=== PATIENT | female | born 1955 | race Caucasian/White ===

== ENCOUNTER → 2019-02-20 | Outpatient (CLI) | payer MEDICARE, BC ==
[~2019-02-20] MED LIST: Advil200 M1; Synthroid125 MCG
== END | disposition home or self-care (01) ==
LOC: PLD 15:18 → LAB SHORT 15:18
DX: L90.5 Scar conditions and fibrosis of skin (principal)
CPT/HCPCS: 88305

== ENCOUNTER 2021-04-05 20:02 | Emergency (ER) | payer MEDICARE, BC, OTHER ==
[~2021-04-05] VITALS: Ht 172.7 cm; Wt 81.7 kg
== END 2021-04-05 22:00 | disposition left against medical advice (07) ==
LOC: ER 20:02
DX: Z53.21 Procedure and treatment not carried out due to patient leaving prior to being seen by health care provider (principal)
CPT/HCPCS: 71045; 99283-25

== ENCOUNTER 2024-08-17 17:47 | Inpatient (IN) | payer MEDICARE, BC ==
[~2024-08-17] VITALS: Ht 170.2 cm; Wt 79.3 kg
[2024-08-17 18:24] LABS: BASOPHILS ABSOLUTE AUTO 0.06 K/mm3 (0.00-0.23); BASOPHILS PERCENT AUTO 1 % (0-2); EOSINOPHILS ABSOLUTE AUTO 0.16 K/mm3 (0.00-0.68); EOSINOPHILS PERCENT AUTO 2 % (0-6); Hematocrit 41.9 % (33.0-51.0); Hemoglobin 14.3 g/dL (11.5-16.0); IMMATURE GRAN ABSOLUTE AUTO 0.02 K/mm3 (0.00-0.10); IMMATURE GRAN PERCENT AUTO 0 % (0-1); LYMPHOCYTES ABSOLUTE AUTO 2.78 K/mm3 (0.84-5.20); LYMPHOCYTES PERCENT AUTO 25 % (21-46); MONOCYTES PERCENT AUTO 6 % (4-13); Mean Corpuscular HGB 28.9 pg (26.0-34.0); Mean Corpuscular HGB Conc 34.1 g/dL (31.5-36.5); Mean Corpuscular Volume 85 fL (80-100); Mean Platelet Volume 9.9 fL (9.1-12.4); NEUTROPHILS ABSOLUTE AUTO 7.28 K/mm3 (1.96-9.15); NEUTROPHILS PERCENT AUTO 66 % (41-73); Platelet Count 278 K/mm3 (150-400); RDW Coefficient Variation 13.9 % (11.7-14.2); RDW Standard Deviation 43.1 fL (35.1-46.3); Red Blood Cell Count 4.94 M/mm3 (3.80-5.20)
[2024-08-17 19:04] LABS: Albumin/Globulin Ratio 0.9 (0.8-1.8); Bun/Creatinine Ratio 19.1 (12.0-20.0); Calcium, Blood 10.2 mg/dL (8.5-10.1); Creatinine, Blood 0.79 mg/dL (0.40-1.00); Globulin, Blood 4.3 g/dL (2.2-4.0); Potassium, Blood 3.7 mmol/L (3.5-5.5); Total Protein, Blood 8.3 g/dL (6.4-8.2)
[2024-08-17] MEDS ORDERED: Aspirin 325 MG Tab PO ONE (20:20)
[2024-08-17] MEDS ORDERED: Nitroglycerin 0.4 MG SUBL SL PRN ×2 (20:20→23:25)
[2024-08-17] MEDS ORDERED: SYNTHROID125 MC1 PO (21:34)
[2024-08-17] MEDS ORDERED: Mag Hydrox/AL Hydrox/Simeth 30 ML UDC PO ONE (21:35)
[2024-08-17] MEDS ORDERED: Atorvastatin 10 MG Tab PO ONE (21:35)
[2024-08-17 22:12] LABS: Anti-Xa UFH, PHA Monitoring <0.10 IU/mL; International Normalized Ratio 1.04; Prothrombin Time Results 11.1 Sec (9.7-11.5)
[2024-08-17] MEDS ORDERED: Heparin Sodium,Porcine/0.5 NS 500 ML IV SCH (22:35)
[2024-08-17] MEDS ORDERED: Ondansetron HCl 2 MG / ML 2ML Vial IV PRN (23:25)
[2024-08-17] MEDS ORDERED: FLU VACC TS2024-25(6MOS UP)/PF 45 MCG/0.5 ML SYRINGE IM ONE (23:25)
[2024-08-17] MEDS ORDERED: FentaNYL Citrate 50 MCG/ML 2 ML Injection IV PRN (23:25)
[2024-08-17] MEDS ORDERED: NS 1,000 ML IV ONE (23:25)
[2024-08-17 23:44] VITALS: BP 149/78
[2024-08-17] MEDS ORDERED: Clopidogrel Bisulfate 75 MG Tab PO ONE (23:45)
[2024-08-18] VITALS (10 sets, daily range): BP systolic 97–153; BP diastolic 37–90
[2024-08-18] MEDS ORDERED: Melatonin 3 MG Tab PO PRN (00:35)
[2024-08-18] MEDS ORDERED: Heparin Sodium 5000 Units/ML 1ML MDV IV ONE (00:50)
--- NOTE | 2024-08-18 06:17 | NUR ---
SHIFT SUMMARY PATIENT ARRIVED TO PCU 16 VIA STRETCHER. SHE IS STEADY ON HER FEET AND WAS ABLE TO SELF TRANSFER TO THE BED. PATIENT ALERT AND ORINETED X4. DENIES ANY CHEST PAIN/SHORTNESS OF BREATH. IS ON ROOM AIR WITH SPO2 >90%. VITAL SIGNS STABLE. NO ACUTE ISSUES NOTED OVERNIGHT. WILL CONTINUE TO MONITOR. CALL LIGHT WITHIN REACH.
[2024-08-18 06:21] LABS: BASOPHILS ABSOLUTE AUTO 0.06 K/mm3 (0.00-0.23); BASOPHILS PERCENT AUTO 1 % (0-2); EOSINOPHILS ABSOLUTE AUTO 0.25 K/mm3 (0.00-0.68); EOSINOPHILS PERCENT AUTO 3 % (0-6); Hematocrit 40.7 % (33.0-51.0); Hemoglobin 13.7 g/dL (11.5-16.0); IMMATURE GRAN ABSOLUTE AUTO 0.01 K/mm3 (0.00-0.10); IMMATURE GRAN PERCENT AUTO 0 % (0-1); LYMPHOCYTES ABSOLUTE AUTO 2.43 K/mm3 (0.84-5.20); LYMPHOCYTES PERCENT AUTO 32 % (21-46); MONOCYTES ABSOLUTE AUTO 0.75 K/mm3 (0.16-1.47); MONOCYTES PERCENT AUTO 10 % (4-13); Mean Corpuscular HGB 29.2 pg (26.0-34.0); Mean Corpuscular HGB Conc 33.7 g/dL (31.5-36.5); Mean Corpuscular Volume 87 fL (80-100); Mean Platelet Volume 9.8 fL (9.1-12.4); NEUTROPHILS PERCENT AUTO 55 % (41-73); Platelet Count 227 K/mm3 (150-400); RDW Standard Deviation 44.8 fL (35.1-46.3); Red Blood Cell Count 4.69 M/mm3 (3.80-5.20)
[2024-08-18] MEDS ORDERED: Dose Adjust by Pharmacy XX STA (06:45)
[2024-08-18 06:48] LABS: Albumin, Blood 3.3 g/dL (3.4-5.0); Albumin/Globulin Ratio 0.8 (0.8-1.8); Bilirubin, Total 1.2 mg/dL (0.1-1.0); Calcium, Blood 9.1 mg/dL (8.5-10.1); Creatinine, Blood 0.8 mg/dL (0.40-1.00); Globulin, Blood 3.9 g/dL (2.2-4.0); Potassium, Blood 3.9 mmol/L (3.5-5.5); Total Protein, Blood 7.2 g/dL (6.4-8.2)
[2024-08-18] MEDS ORDERED: Clopidogrel Bisulfate 75 MG Tab PO SCH (09:00)
[2024-08-18] MEDS ORDERED: Aspirin 81 MG Chew PO SCH ×2 (09:00→09:20)
[2024-08-18] MEDS ORDERED: Atorvastatin 40 MG Tab PO SCH (09:00)
[2024-08-18] MEDS ORDERED: Verapamil HCL 2.5 MG/ML 2ML Injection ONE (09:58)
[2024-08-18] MEDS ORDERED: Nitroglycerin 2 MG/20 ML BTL ONE (09:59)
[2024-08-18] MEDS ORDERED: NS 250 ML IV ONE (09:59)
[2024-08-18] MEDS ORDERED: Heparin Sodium 1000 Units/ML 10ML MDV ONE ×2 (09:59→11:22)
[2024-08-18] MEDS ORDERED: NS 1,000 ML IV ONE ×2 (09:59→10:02)
[2024-08-18] MEDS ORDERED: FentaNYL Citrate 50 MCG/ML 2 ML Injection ONE (10:02)
[2024-08-18] MEDS ORDERED: Midazolam HCl 1MG / ML 2ML Vial ONE (10:02)
[2024-08-18] MEDS ORDERED: Peg 400/Hypromellose/Glycerin 15 DROP/ML BTL BOTHEYES PRN (10:15)
[2024-08-18] MEDS ORDERED: Ondansetron HCl 2 MG / ML 2ML Vial ONE (11:04)
[2024-08-18] MEDS ORDERED: Clopidogrel Bisulfate 300 MG Cap ONE (11:04)
[2024-08-18] MEDS ORDERED: Nitroglycerin 0.4 MG SUBL ONE (11:06)
--- NOTE | 2024-08-18 12:24 | NUR ---
TRANSFER NOTE UPON CARE ASSUMPTION, PT A&OX4. SP02>90% ON RA. TELEMETRY SHOWS NSR, HR 60'S. VSS. PT DENIES CP SINCE ER, PER PT. UP TO BATHROOM SBA TO VOID. ECHO IN ROOM THIS AM. MD STEWART, CK IN ROOM TO ASSESS. PT NPO FOR ANGIO THIS AM. HEP GTT INFUSING PER EMAR. NS INFUSING PER EMAR X1 BAG. PT TALKING TO FAMILY ON PHONE MOST OF MORNING. ANGIO STAFF IN ROOM TO TAKE PT TO PROCEDURE APPROX 1015. APPROX 1115, ANGIO STAFF VOCERA'D CHARGE TO NOTIFY PT WOULD BE GOING TO ICU AFTER PROCEDURE. PT'S BELONGINGS BAG, GLASSES, PHONE, PURSE TAKEN TO ICU 04 AND BEDSIDE REPORT GIVEN.
--- NOTE | 2024-08-18 12:32 | NUR ---
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 Transferred to ICU for nitro drip, should pt have chest pain. On arrival, she is free of chest pain and in good spirits. Per report, pt has multivessel disease and will need transfer to higher level of care for CABG evaluation. On arrival pt is A&O x 4. Answers questions, follows commands, verbalizes needs. Pleasant and cooperative with care. Discussed R TR site restrictions and pt verbalizes understanding. Per DR CK, heparin drip will be restarted 3-4 hours after TR band removed. Pharmacy notified that drip has been stopped. BP stable. HR 70s, sinus. SpO2 97% with room air, pleth measured on index finger distal to PCI access site. Initially, R fingers blue, pt denies numbness/tingling. 1 mL air removed from TR site and this resulted in equal color, sensation, pulses, capillary refill in BUE and BLE. No bleeding, bruising, or hematoma noted to procedure site
[2024-08-18] MEDS ORDERED: Scopolamine Hydrobromide Patch TOP SCH (14:00)
[2024-08-18 14:53] LABS: Thyroxine (T4) 12.9 ug/dL (4.8-13.9)
[2024-08-18 14:55] LABS: Thyroid Stimulating Hormone 0.098 uIU/mL (0.360-4.800)
[2024-08-18] MEDS ORDERED: Mag Hydrox/AL Hydrox/Simeth 30 ML UDC PO PRN (16:45)
--- NOTE | 2024-08-18 18:05 | NUR ---
Patient A&Ox4 and very pleasant, vitals are al stable, pt is on ra, arived to unit with tr band inflated to 12, it is deflated currently to 9, but was deflated to 7 earlier, the site has been leaking a little and vivienne had to reinsert air once. patient is having some gi upset with food, prn medication given and pt reported resolution on abd pain, patient walked to toilet, ambulates safely with sba, patient is [facility]. will continue to monitor and report to oncoming nurse
--- NOTE | 2024-08-18 21:12 | NUR ---
I WAS TOLD IN REPORT FROM [facility] RN DEBRA MILLIGAN RN THAT SHE HAD DIFFICULTY DEFLATING THE TR BAND AND HAD TO REINFLATE IT MULTIPLE TIMES. THE TR BAND WAS STILL INTACT WHEN I ASSUMED CARE OF THE PT WITH A REPORTED 5CC OF AIR IN THE BALLOON. AFTER READING THE NOTES FROM DR BARTHOLOMEW FROM [facility] TODAY I SAW THAT HE HAD WANTED A HEPARIN DRIP STARTED AFTER THE TR BAND WAS REMOVED. I CALLED THE DR AND UPDATED HIM ON THE DIFFICULTY REMOVING THE BAND ON THE PRIOR SHIFT AND ASKED FOR CLARIFICATION ON THE HEPARIN DRIP. MD CAME TO PT BEDSIDE AND ORDERS WERE GIVEN-SEE ORDERS.
--- NOTE | 2024-08-18 22:48 | NUR ---
TR BAND REMOVED. NO BLEEDING/HEMATOMA/BRUISING NOTED. TEGADERM APPLIED. INSTRUCTED PT TO NOTIFY RN W/ANY CHANGES.
--- NOTE | 2024-08-18 22:49 | NUR ---
HEPARIN GTT TO RESTART ANT 0245 PER MD ORDER
[2024-08-19] VITALS (12 sets, daily range): BP systolic 92–140; BP diastolic 59–93
[2024-08-19] MEDS ORDERED: Dose Adjust by Pharmacy XX STA ×3 (02:34→10:05)
[2024-08-19 03:22] LABS: BASOPHILS ABSOLUTE AUTO 0.06 K/mm3 (0.00-0.23); BASOPHILS PERCENT AUTO 1 % (0-2); EOSINOPHILS ABSOLUTE AUTO 0.29 K/mm3 (0.00-0.68); EOSINOPHILS PERCENT AUTO 4 % (0-6); Hematocrit 40.5 % (33.0-51.0); Hemoglobin 13.7 g/dL (11.5-16.0); IMMATURE GRAN ABSOLUTE AUTO 0.01 K/mm3 (0.00-0.10); IMMATURE GRAN PERCENT AUTO 0 % (0-1); LYMPHOCYTES ABSOLUTE AUTO 1.96 K/mm3 (0.84-5.20); LYMPHOCYTES PERCENT AUTO 24 % (21-46); MONOCYTES ABSOLUTE AUTO 0.81 K/mm3 (0.16-1.47); MONOCYTES PERCENT AUTO 10 % (4-13); Mean Corpuscular HGB 28.8 pg (26.0-34.0); Mean Corpuscular HGB Conc 33.8 g/dL (31.5-36.5); Mean Corpuscular Volume 85 fL (80-100); Mean Platelet Volume 10.2 fL (9.1-12.4); NEUTROPHILS ABSOLUTE AUTO 4.95 K/mm3 (1.96-9.15); NEUTROPHILS PERCENT AUTO 61 % (41-73); Platelet Count 237 K/mm3 (150-400); RDW Coefficient Variation 14.1 % (11.7-14.2); RDW Standard Deviation 43.9 fL (35.1-46.3); Red Blood Cell Count 4.75 M/mm3 (3.80-5.20); White Blood Cell Count 8.08 K/mm3 (4.00-11.30)
[2024-08-19 03:49] LABS: Calcium, Blood 9.8 mg/dL (8.5-10.1); Creatinine, Blood 0.75 mg/dL (0.40-1.00)
--- NOTE | 2024-08-19 05:37 | NUR ---
SHIFT SUMMERY PT IS ALERT AND ORIENTED X4. SHE HAS HAD NO COMPLAINTS OF CHEST PAIN/PRESSURE OVERNIGHT. TR BAND WAS REMOVED AND THERE IS NO BRUISE/BLEEDING/HEMATOMA PRESENT. HEPARIN GTT WAS STARTED PER ORDER. PT HAS BEEN UP TO THE BEDSIDE COMMODE TO VOID, TOLERATED WELL. PT HAS BEEN ACCEPTED TO [facility] FOR HIGHER LEVEL OF CARE, AWAITING BED ASSIGNMENT.
[2024-08-19] MEDS ORDERED: Levothyroxine Sodium 0.125 MG Tab PO SCH (06:00)
--- NOTE | 2024-08-19 07:15 | NUR ---
ASSUMPTION OF CARE: ASSUMED CARE OF PATIENT. PATIENT RESTING IN BED. PATIENT DENIES CHEST PAIN/PRESSURE. PATIENT DENIES SHORTNESS OF BREATH OR DIFFICULTY BREATHING. PATIENT'S BREATHING IS EVEN AND REGULAR. PATIENT STABLE ON ROOM AIR WITH SPO2 >92%. BLOOD PRESSURES STABLE, WITH MAPS >65. HR IS SINUS TO SINUS JUANIS, WITH HR IN THE 50S-60S THIS AM. HEPARIN GTT INFUSING AT 12 UNITS/KG/HR. TR BAND SITE IS RECOVERED. TEGADERM DRESSING ON RIGHT WRIST. IT IS CLEAN/DRY/INTACT WITH NO LEAKING FROM THE INSERTION SITE. PATIENT MOVING ALL LIMBS INDEPENDENTLY AND REPOSITIONING IN BED INDEPENDENTLY.
--- NOTE | 2024-08-19 12:25 | NUR ---
TRANSFER AND REPORT: PATIENT LEFT VIA TRANSPORT AT 1205. PATIENT'S DAUGHTER WAS AT BEDSIDE DURING PACK UP AND TRANSFER. DR. JUÁREZ AWARE OF TRANSPORT TIME AND BED ASSIGNMENT AT [facility]. PATIENT VERBALIZED NEED TO TRANSFER AND SERVICES THAT WILL BE PROVIDED AT [facility]. PATIENT TRANSFERRED WITH HEPARIN GTT. PATIENT STABLE AT TIME OF TRANSFER. REPORT CALLED TO DOUG GARCIA FOR ROOM 279. SHE IS AWARE OF ETA AND PATIENT STATUS. THROUGHOUT THE MORNING, PATIENT CONTINUED TO DENY CHEST PAIN/PRESSURE. PATIENT HR IN THE 50S-60S. PATIENT ASYMPTOMATIC. BLOOD PRESSURES STABLE WITH MAPS >65. TR ACCESS SITE CONTINUED TO BE C/D/I. NO HEMATOMA. HEPARIN GTT TITRATED PER PHARMACY THIS AM AND ADJUSTED TO 14 UNITS/KG/HR. PATIENT CONTINUES TO BE STABLE ON ROOM AIR WITH SP02>92%. NO SHORTNESS OF BREATH OR DIFFICULTY BREATHING AT REST OR WITH MOBILITY.
== END 2024-08-19 12:05 | disposition short-term general hospital (02) | DRG 281 ==
LOC: ER 17:47 → ERHOLD 17:48 → PCU 17:48 → ICUE 08-18 12:11
PROVIDERS: Internal Medicine; Physician Assistant; Student in an Organized Health Care Education/Training Program; ADMIT Internal Medicine
PROC: 4A023N7 Measurement of Cardiac Sampling and Pressure, Left Heart, Percutaneous Approach (ICD-10-PCS; principal; 2024-08-18)
PROC: B2111ZZ Fluoroscopy of Multiple Coronary Arteries using Low Osmolar Contrast (ICD-10-PCS; 2024-08-18)
DX: I21.4 Non-ST elevation (NSTEMI) myocardial infarction (principal); I50.32 Chronic diastolic (congestive) heart failure; E03.9 Hypothyroidism, unspecified; I25.10 Atherosclerotic heart disease of native coronary artery without angina pectoris; E05.00 Thyrotoxicosis with diffuse goiter without thyrotoxic crisis or storm; E88.810 Metabolic syndrome; E11.9 Type 2 diabetes mellitus without complications; G56.00 Carpal tunnel syndrome, unspecified upper limb; Z88.5 Allergy status to narcotic agent; Z79.890 Hormone replacement therapy; Z79.82 Long term (current) use of aspirin; Z79.02 Long term (current) use of antithrombotics/antiplatelets; Z79.899 Other long term (current) drug therapy; Z87.891 Personal history of nicotine dependence
CPT/HCPCS: 36415; 71046; 76937; 80048; 80053; 83036; 83880; 84436; 84443; 84484; 85025; 85347; 85520; 85610; 85730; 93005; 93010; 93306; 93458; 93571; 94762; 96365; 96366; 99152; 99153; 99285-25; A9270; C1769; C1887; C1894; G0378; J1644; J2250; J2405; J3010; J7030; J7050; Q9967

== ENCOUNTER 2024-11-30 16:06 | Inpatient (IN) | payer MEDICARE, BC ==
[~2024-11-30] VITALS: Ht 170.2 cm; Wt 76.0 kg
[~2024-11-30 16:06] MED LIST changes: +SYNTHROID125 MC1 PO
[2024-11-30 16:46] VITALS: BP 118/83
[2024-11-30] MEDS ORDERED: METO25ER PO (17:04)
[2024-11-30] MEDS ORDERED: CLOP75 PO (17:05)
[2024-11-30] MEDS ORDERED: ATOR40TA PO (17:05)
[2024-11-30] MEDS ORDERED: Aspir 8181 MG PO (17:05)
[2024-11-30] MEDS ORDERED: CIPR750 PO (17:06)
[2024-11-30] MEDS ORDERED: METR500 PO (17:07)
[2024-11-30] MEDS ORDERED: ACET500 PO (17:08)
--- NOTE | 2024-11-30 17:33 | NUR ---
ARRIVAL NOTE PT INTO ROOM 228, DIRECT ADMIT FROM HOME. A/OX4, IND, AMBULATING IN ROOM. PT DENIES PAIN AT REST, PT HAS REBOUND PAIN IN LOWER ABD UPON PALPATION. DENIES N/V. PT STATES SHE HAS BEEN ON CL DIET AT HOME FOR A FEW DAYS. DAVID. MARK ICE CREAM VAN VENDOR AT BEDSIDE TO ASSESS PT. CALL LIGHT IN REACH, SPOUSE AT BEDSIDE.
[2024-11-30] MEDS ORDERED: Ondansetron HCl 2 MG / ML 2ML Vial IV PRN (18:05)
[2024-11-30] MEDS ORDERED: Lactated Ringer's 1,000 ML IV SCH (18:05)
[2024-11-30] MEDS ORDERED: FentaNYL Citrate 50 MCG/ML 2 ML Injection IV PRN (18:05)
[2024-11-30] MEDS ORDERED: Piperacillin/Tazobactam Sod 3.375 GM in NS 100 ML IV SCH (18:08)
[2024-11-30 18:22] LABS: BASOPHILS ABSOLUTE AUTO 0.06 K/mm3 (0.00-0.23); BASOPHILS PERCENT AUTO 1 % (0-2); EOSINOPHILS PERCENT AUTO 2 % (0-6); Hematocrit 38.7 % (33.0-51.0); Hemoglobin 12.6 g/dL (11.5-16.0); IMMATURE GRAN ABSOLUTE AUTO 0.05 K/mm3 (0.00-0.10); IMMATURE GRAN PERCENT AUTO 0 % (0-1); LYMPHOCYTES ABSOLUTE AUTO 1.94 K/mm3 (0.84-5.20); LYMPHOCYTES PERCENT AUTO 16 % (21-46); MONOCYTES ABSOLUTE AUTO 0.91 K/mm3 (0.16-1.47); MONOCYTES PERCENT AUTO 7 % (4-13); Mean Corpuscular HGB 27.3 pg (26.0-34.0); Mean Corpuscular HGB Conc 32.6 g/dL (31.5-36.5); Mean Corpuscular Volume 84 fL (80-100); Mean Platelet Volume 9.1 fL (9.1-12.4); NEUTROPHILS ABSOLUTE AUTO 9.14 K/mm3 (1.96-9.15); NEUTROPHILS PERCENT AUTO 74 % (41-73); Platelet Count 347 K/mm3 (150-400); RDW Coefficient Variation 14.7 % (11.7-14.2); Red Blood Cell Count 4.61 M/mm3 (3.80-5.20)
[2024-11-30 19:02] VITALS: BP 135/81
[2024-11-30 19:15] LABS: Albumin, Blood 3.4 g/dL (3.4-5.0); Albumin/Globulin Ratio 0.8 (0.8-1.8); Bilirubin, Total 0.7 mg/dL (0.1-1.0); Bun/Creatinine Ratio 14.1 (12.0-20.0); Calcium, Blood 9.4 mg/dL (8.5-10.1); Creatinine, Blood 0.93 mg/dL (0.40-1.00); Globulin, Blood 4.4 g/dL (2.2-4.0); Potassium, Blood 3.6 mmol/L (3.5-5.5); Total Protein, Blood 7.8 g/dL (6.4-8.2)
[2024-11-30] MEDS ORDERED: NS 250 ML IV PRN (20:45)
[2024-11-30] MEDS ORDERED: Artificial Tear Opth Oint 3.5 GM BOTHEYES SCH (21:00)
[2024-12-01 03:45] VITALS: BP 95/64
[2024-12-01 04:19] LABS: Hematocrit 37.6 % (33.0-51.0); Hemoglobin 12.4 g/dL (11.5-16.0); Mean Corpuscular HGB 27.7 pg (26.0-34.0); Mean Corpuscular Volume 84 fL (80-100); Mean Platelet Volume 9.6 fL (9.1-12.4); Platelet Count 360 K/mm3 (150-400); RDW Coefficient Variation 14.7 % (11.7-14.2); RDW Standard Deviation 45.1 fL (35.1-46.3); Red Blood Cell Count 4.48 M/mm3 (3.80-5.20); White Blood Cell Count 12.63 K/mm3 (4.00-11.30)
[2024-12-01 04:34] LABS: Bun/Creatinine Ratio 10.5 (12.0-20.0); Calcium, Blood 8.8 mg/dL (8.5-10.1); Creatinine, Blood 0.86 mg/dL (0.40-1.00); Potassium, Blood 3.8 mmol/L (3.5-5.5)
--- NOTE | 2024-12-01 04:47 | NUR ---
SHIFT SUMMARY; PATIENT DID NOT REQUIRE ANY PAIN MEDS, ABLE TO SLEEP IN SHORT INTREVALS. LR/150/HR.AND ABX. NPO AT MIDINGHT IN CASE SHE HAS SURGERY.
[2024-12-01] MEDS ORDERED: Levothyroxine Sodium 0.125 MG Tab PO SCH (06:00)
[2024-12-01 08:06] VITALS: BP 123/71
[2024-12-01] MEDS ORDERED: Metoprolol Succinate 25 MG TABCR PO SCH (09:00)
[2024-12-01] MEDS ORDERED: Aspirin 81 MG TabEC PO SCH (09:00)
[2024-12-01] MEDS ORDERED: Atorvastatin 40 MG Tab PO SCH (09:00)
[2024-12-01] MEDS ORDERED: Clopidogrel Bisulfate 75 MG Tab PO SCH (09:00)
[2024-12-01 15:05] VITALS: BP 121/76
--- NOTE | 2024-12-01 18:19 | NUR ---
SHIFT SUMMARY PT ADMITTED FOR PERFORATED SIGMOID COLON CONTAINED. CLEAR LIQUID DIET. PT TOLERATING DIET. PT URINATING WELL. PT STATES THIS IS THE FIRST TIME THEY HAVE BEEN HUNGRY IN A WEEK. PT DENIES N/V. PT HAS NOT REQUIRED PAIN MEDICATION. PT REPORTS PAIN IS TOLERABLE AND 2/10. PT INDEPENDENT AND MAKES NEEDS KNOWN.
[2024-12-01 19:15] VITALS: BP 111/77
[2024-12-02 03:44] VITALS: BP 119/79
[2024-12-02 07:56] VITALS: BP 107/69
--- NOTE | 2024-12-02 08:00 | NUR ---
SHIFT SUMMARY: PATIENT ALERT AND ORIENTED X4. PLEASNAT AND COOPERATIVE WITH CARE. DENIES PAIN WITH PALPATION OF THE ABDOMEN THAT SHE WAS HAVING PRIOR. ABD SOFT WITH BT+. DENIES N/V. PATIENT UP AD DIANE TO THE BR TO VOID, TAKES THE PUMP WITH HER. PATIENT USES A NOISE MACHINE TO SLEEP. PASSING FLATUS. RESTED WELL T/O NOC. SCHEDULED MEDICATIONS GIVEN ORDERED AND PRN NEEDED. ZIO PATCH IN PLACE. LR @150 ML/HR PAUSED WHEN IVPB ANTIBIOTICS ARE INFUSING WITH NS FLUSH POST. 20G RIGHT FA PATENT AND FLUSHES EASILY. REPORT TO MARIANNA CAMACHO TO ASSUME CARE OF PATIENT.
[2024-12-02] MEDS ORDERED: VISBIOME 112.51 EACH PO (10:43)
[2024-12-02] MEDS ORDERED: AMOCLA875 PO (10:43)
[2024-12-02] MEDS ORDERED: Glycerin Adult Supp 1 EA PR STA (12:33)
[2024-12-02] MEDS ORDERED: MIRALAX17 GM PO (13:06)
--- NOTE | 2024-12-02 14:17 | NUR ---
DISCHARGE PT REMAINED IND IN ROOM, TOLERATING DIET WELL WITH NO NAUSEA. SUPPOSITORY GIVEN AND PT ABLE TO HAVE LARGE BOWEL MOVEMENT REPORTED IMPROVEMENT TO DISCOMFORT. ALL INSTRUCTIONS GONE OVER WITH PATIENT, ALL BELONGINGS WITH PATIENT. PT ELECTED TO AMBULATE OUT.
== END 2024-12-02 14:19 | disposition home or self-care (01) | DRG 392 ==
LOC: SURS 16:06
PROVIDERS: Nurse Practitioner Acute Care; ADMIT Internal Medicine
DX: K57.20 Diverticulitis of large intestine with perforation and abscess without bleeding (principal); I25.10 Atherosclerotic heart disease of native coronary artery without angina pectoris; E03.9 Hypothyroidism, unspecified; K59.00 Constipation, unspecified; Z79.890 Hormone replacement therapy; Z79.02 Long term (current) use of antithrombotics/antiplatelets; Z95.5 Presence of coronary angioplasty implant and graft; Z79.82 Long term (current) use of aspirin; Z79.899 Other long term (current) drug therapy; Z88.5 Allergy status to narcotic agent; Z88.8 Allergy status to other drugs, medicaments and biological substances; Z87.19 Personal history of other diseases of the digestive system; Z98.890 Other specified postprocedural states
CPT/HCPCS: 36415; 80048; 80053; 85025; 85027; A9270; J2405; J2543; J3010; J7050; J7120

== ENCOUNTER 2025-03-07 10:57 | Day surgery (SDC) | payer MEDICARE, BC, OTHER ==
[~2025-03-07] VITALS: Ht 170.2 cm; Wt 78.9 kg
[~2025-03-07 10:57] MED LIST changes: +ACET500 PO; +AMOCLA875 PO; +ATOR40TA PO; +Aspir 8181 MG PO; +CIPR750 PO; +CLOP75 PO; +METO25ER PO; +METR500 PO; +MIRALAX17 GM PO; +VISBIOME 112.51 EACH PO
[2025-03-07] MEDS ORDERED: SYNTHROID125 MC1 (12:02)
[2025-03-07] MEDS ORDERED: EUTHYROX125 MCG (12:03)
[2025-03-07 15:01] VITALS: BP 130/79
== END 2025-03-07 14:55 | disposition home or self-care (01) ==
LOC: ORSCSDS 10:57
PROVIDERS: Surgery
PROC: 0DJD8ZZ Inspection of Lower Intestinal Tract, Via Natural or Artificial Opening Endoscopic (ICD-10-PCS; principal; 2025-03-07 13:00)
DX: Z12.11 Encounter for screening for malignant neoplasm of colon (principal); Z87.19 Personal history of other diseases of the digestive system; Z80.0 Family history of malignant neoplasm of digestive organs; K57.30 Diverticulosis of large intestine without perforation or abscess without bleeding; F41.9 Anxiety disorder, unspecified; F32.A Depression, unspecified; I25.10 Atherosclerotic heart disease of native coronary artery without angina pectoris; E05.00 Thyrotoxicosis with diffuse goiter without thyrotoxic crisis or storm; I25.2 Old myocardial infarction; I10 Essential (primary) hypertension; Z79.02 Long term (current) use of antithrombotics/antiplatelets; Z79.899 Other long term (current) drug therapy
CPT/HCPCS: J2704; J7120